=== PATIENT | female | born 1935 | race Caucasian/White ===

== ENCOUNTER 2017-05-12 11:00 | Emergency (ER) | payer MEDICARE, OTHER ==
[~2017-05-12] VITALS: Ht 157.5 cm; Wt 61.0 kg
[2017-05-12 11:05] VITALS: BP 226/97; PULSE 80; RESP 18; TEMP 97.5; O2SAT 96
[2017-05-12] MEDS ORDERED: ASPIRIN 325 MG TAB PO ONE (11:30)
[2017-05-12] MEDS: NITROGLYCERIN 0.4 MG SL 25 TABS/BTL SL SCH ×3 (11:35→11:41)
--- NOTE | 2017-05-12 11:37 | PD ---
HPI Chief Complaint: Chest Pain Time Seen by Provider: 11:11 Travel History International Travel<30 days: No Contact w/Intl Traveler<30days: No History of Present Illness HPI 82-year-old female presents to the emergency room with central chest pain that started this morning. She states it goes into her arm and she is also having pain to her upper back. She denies any other concurrent complaints. She states she tried Aleve without relief. She denies taking an aspirin yet today. She states when she had this in the past a couple years ago she was told it was related to her rib. She was given a diagnosis of arthritis. She states the pain is worse with movement. She denies other specific modifying factors. Quality is pressure. Severity is 9 out of 10. PFSH Past Medical History Narrative Medical High cholesterol, arthritis Past Surgical History Narrative Surgical Kidney repair Social History Tobacco Use: No Allergies-Medications (Allergen,Severity, Reaction): Coded Allergies: Penicillins (Verified Allergy, Unknown, 05/12/17) Reported Meds & Prescriptions Reported Meds & Active Scripts Active Reported Calcium 500 +D (Calcium Carbonate-Cholecalciferol) 500-400 Mg-Unit Tab 1 Tab PO DAILY Gabapentin 300 Mg Cap 300 Mg PO HS Biotin 10 Mg Tab 10 Mg PO DAILY Lipitor (Atorvastatin Calcium) 10 Mg Tab 10 Mg PO HS Multi Vitamin Daily (Multiple Vitamin) 1 Tab Tab Review of Systems Except as stated in HPI: all other systems reviewed are Neg Physical Exam Narrative GENERAL: 82-year-old female presents in no apparent distress SKIN: Focused skin assessment warm/dry. HEAD: Atraumatic. Normocephalic. EYES: Pupils equal and round. No scleral icterus. No injection or drainage. ENT: No nasal bleeding or discharge. Mucous membranes pink and moist. NECK: Trachea midline. No JVD. CARDIOVASCULAR: Regular rate and rhythm. No murmur appreciated. RESPIRATORY: No accessory muscle use. Clear to auscultation. Breath sounds equal bilaterally. GASTROINTESTINAL: Abdomen soft, non-tender, nondistended. MUSCULOSKELETAL: No obvious deformities. NEUROLOGICAL: Awake and alert. No obvious cranial nerve deficits. Motor grossly within normal limits. Normal speech. PSYCHIATRIC: Appropriate mood and affect; insight and judgment normal. Data Data Last Documented VS Vital Signs Date Time Temp Pulse Resp B/P (MAP) Pulse Ox O2 Delivery O2 Flow Rate FiO2 05/12/17 13:04 96 Room Air 05/12/17 11:53 16 05/12/17 11:05 97.5 80 Orders Orders Electrocardiogram (05/12/17 11:12) B-Type Natriuretic Peptide (05/12/17 11:12) Ckmb (Isoenzyme) Profile (05/12/17 11:12) Complete Blood Count With Diff (05/12/17 11:12) Comprehensive Metabolic Panel (05/12/17 11:12) Magnesium (Mg) (05/12/17 11:12) Prothrombin Time / Inr (Pt) (05/12/17 11:12) Act Partial Throm Time (Ptt) (05/12/17 11:12) Troponin I (05/12/17 11:12) Chest, Single Ap (05/12/17 11:12) Ecg Monitoring (05/12/17 11:12) Bilateral Bp Monitoring (05/12/17 11:12) Iv Access Insert/Monitor (05/12/17 11:12) Oximetry (05/12/17 11:12) Aspirin (Aspirin) (05/12/17 11:30) Nitroglycerin Sl (Nitrostat Sl) (05/12/17 11:30) Labs Laboratory Tests Test 05/12/17 11:35 White Blood Count 8.9 TH/MM3 Red Blood Count 4.76 MIL/MM3 Hemoglobin 14.3 GM/DL Hematocrit 43.7 % Mean Corpuscular Volume 91.7 FL Mean Corpuscular Hemoglobin 30.0 PG Mean Corpuscular Hemoglobin Concent 32.7 % Red Cell Distribution Width 12.8 % Platelet Count 334 TH/MM3 Mean Platelet Volume 7.5 FL Neutrophils (%) (Auto) 69.5 % Lymphocytes (%) (Auto) 22.4 % Monocytes (%) (Auto) 5.8 % Eosinophils (%) (Auto) 1.1 % Basophils (%) (Auto) 1.2 % Neutrophils # (Auto) 6.2 TH/MM3 Lymphocytes # (Auto) 2.0 TH/MM3 Monocytes # (Auto) 0.5 TH/MM3 Eosinophils # (Auto) 0.1 TH/MM3 Basophils # (Auto) 0.1 TH/MM3 CBC Comment DIFF FINAL Differential Comment Prothrombin Time 10.0 SEC Prothromb Time International Ratio 1.0 RATIO Activated Partial Thromboplast Time 21.6 SEC Blood Urea Nitrogen 17 MG/DL Creatinine 0.85 MG/DL Random Glucose 106 MG/DL Total Protein 8.4 GM/DL Albumin 4.7 GM/DL Calcium Level 11.0 MG/DL Magnesium Level 2.3 MG/DL Alkaline Phosphatase 83 U/L Aspartate Amino Transf (AST/SGOT) 26 U/L Alanine Aminotransferase (ALT/SGPT) 21 U/L Total Bilirubin 0.7 MG/DL Sodium Level 134 MEQ/L Potassium Level 3.9 MEQ/L Chloride Level 99 MEQ/L Carbon Dioxide Level 27.0 MEQ/L Anion Gap 8 MEQ/L Estimat Glomerular Filtration Rate 64 ML/MIN Total Creatine Kinase 78 U/L Troponin I LESS THAN 0.02 NG/ML B-Type Natriuretic Peptide 71 PG/ML MDM Medical Decision Making Medical Screen Exam Complete: Yes Emergency Medical Condition: Yes Medical Record Reviewed: Yes (Past history confirmed with nurse) Interpretation(s) EKG shows NSR, no ST elevation or depression, and no arrhythmias. No significant T-wave inversions. CBC & BMP Diagram 05/12/17 11:35 Total Protein 8.4 H, Albumin 4.7, Calcium Level 11.0 H, Magnesium Level 2.3, Alkaline Phosphatase 83, Aspartate Amino Transf (AST/SGOT) 26, Alanine Aminotransferase (ALT/SGPT) 21, Total Bilirubin 0.7 cxr no acute Differential Diagnosis TX, gastritis, musculoskeletal Narrative Course Will check blood work, chest x-ray, EKG and us with aspirin and nitroglycerin and reevaluate after one nitroglycerin patient is pain free, will monitor labs labs are normal, advised gang investigator observation, patient states she wants to go home and wants to talk things over with others to see if she should stay Patient states she wants to leave AMA: The risks of leaving against medical advice without further evaluation treatment were discussed with the patient. These risks include cardiac dysfunction, cardiac dysrhythmia, possible heart attack, possible stroke or . The patient indicated understanding of these risks and appeared to have the capacity to make this decision. Diagnosis Primary Impression: Chest pain Qualified Codes: R07.9 - Chest pain, unspecified Patient Instructions: General Instructions Additional Instructions: return for completion of your testing when possible Med/Other Pt SpecificInfo: No Change to Meds Disposition: 07 AGAINST MEDICAL ADVICE Condition: Stable Taylor Cleveland MD May 12, 2017 11:37
[2017-05-12 11:40] VITALS: BP 226/97
[2017-05-12 11:43] LABS: AUTOMATED NEUTROPHIL # 6.2 TH/MM3 (1.8-7.7); BASOPHIL # 0.1 TH/MM3 (0-0.2); BASOPHIL % 1.2 % (0.0-2.0); EOSINOPHIL # 0.1 TH/MM3 (0-0.4); EOSINOPHIL % 1.1 % (0.0-4.0); HEMATOCRIT 43.7 % (35.0-46.0); HEMOGLOBIN 14.3 GM/DL (11.6-15.3); LYMPH % 22.4 % (9.0-44.0); MEAN CELL VOLUME 91.7 FL (80.0-100.0); MEAN CORPUSCULAR HGB CONC 32.7 % (32.0-36.0); MEAN PLATELET VOLUME 7.5 FL (7.0-11.0); MONO % 5.8 % (0.0-8.0); MONOCYTE # 0.5 TH/MM3 (0-0.9); NEUT % 69.5 % (16.0-70.0); PLATELET COUNT 334 TH/MM3 (150-450); RED BLOOD COUNT 4.76 MIL/MM3 (4.00-5.30); RED CELL DISTRIBUTION WIDTH 12.8 % (11.6-17.2); WHITE BLOOD COUNT 8.9 TH/MM3 (4.0-11.0)
[2017-05-12 11:45] VITALS: BP 206/94
[2017-05-12 11:50] VITALS: BP_SYST 163; BP_SYST 169; BP_DIAS 77; BP_DIAS 79
[2017-05-12 11:53] VITALS: RESP 16; O2SAT 96
[2017-05-12 12:10] LABS: CHLORIDE 99 MEQ/L (98-107); SODIUM (NA) 134 MEQ/L (136-145)
[2017-05-12 12:13] LABS: ALBUMIN 4.7 GM/DL (3.4-5.0); BLOOD UREA NITROGEN 17 MG/DL (7-18); GLUCOSE,RANDOM 106 MG/DL (74-106); MAGNESIUM 2.3 MG/DL (1.5-2.5)
[2017-05-12 12:16] LABS: ALT (GPT) 21 U/L (10-53); AST (GOT) 26 U/L (15-37); CREATININE 0.85 MG/DL (0.50-1.00); GLOMERULAR FILTRATION RATE 64 ML/MIN (>89)
[2017-05-12 12:18] LABS: TOTAL BILIRUBIN ADULT 0.7 MG/DL (0.2-1.0); TOTAL PROTEIN 8.4 GM/DL (6.4-8.2)
[2017-05-12 12:19] LABS: ALKALINE PHOSPHATASE 83 U/L (45-117)
[2017-05-12 12:22] LABS: TROPONIN I LESS THAN 0.02 NG/ML (0.02-0.05)
--- NOTE | 2017-05-12 12:27 | RADRPT ---
EXAM DATE/TIME: 05/12/2017 11:18 [facility] COMPARISON: No previous studies available for comparison. INDICATIONS : Chest pain x 2 days. MEDICAL HISTORY : None. SURGICAL HISTORY : None. ENCOUNTER: Initial ACUITY: 2 days PAIN SCORE: 7/10 LOCATION: chest FINDINGS: A single view of the chest demonstrates the lungs to be symmetrically aerated without evidence of mas s, infiltrate or effusion. The cardiomediastinal contours are unremarkable. Degenerative changes and scoliosis of the thoracolumbar spine are noted. CONCLUSION: 1. No acute cardiopulmonary disease. 2. Degenerative changes and scoliosis of the thoracolumbar spine are noted. Yossi Bal MD on May 12, 2017 at 12:24 Board Certified Radiologist. This report was verified electronically.
--- NOTE | 2017-05-12 12:47 | EKG ---
Date Performed: 05/12/2017 Time Performed: 11:11:23 PTAGE: 82 years EKG: Sinus rhythm BORDERLINE LEFT AXIS DEVIATION BORDERLINE ECG NO PREVIOUS TRACING DOCTOR: Dg Monge Interpretating Date/Time 05/12/2017 12:45:52
[2017-05-12] MEDS ORDERED: GABA300C5 PO (13:04)
[2017-05-12] MEDS ORDERED: CALC1TAB12 PO (13:04)
[2017-05-12] MEDS ORDERED: BIOT10TA PO (13:04)
[2017-05-12] MEDS ORDERED: MULT1TAB46 (13:04)
[2017-05-12] MEDS ORDERED: LIPI10TA PO (13:04)
[2017-05-12 13:48] VITALS: BP 200/74
== END 2017-05-12 13:40 | disposition left against medical advice (07) ==
LOC: PHED 11:00
DX: R07.9 Chest pain, unspecified (principal); R94.31 Abnormal electrocardiogram [ECG] [EKG]; E78.00 Pure hypercholesterolemia, unspecified; M19.90 Unspecified osteoarthritis, unspecified site; Z88.0 Allergy status to penicillin; Z79.899 Other long term (current) drug therapy
CPT/HCPCS: 71045; 80053; 82550; 83735; 83880; 84484; 85025; 85610; 85730; 93005; 99285